=== PATIENT | male | born 1950 | race African-American/Black ===

== ENCOUNTER 2022-05-04 12:01 | Inpatient (IN) ==
[2022-05-04] MEDS ORDERED: SODIUM CHLORIDE 0.9% 1,000 ML IV STA (12:51)
[2022-05-04] MEDS ORDERED: ASPIRIN 325 MG TABLET PO STA (12:51)
[2022-05-04 13:07] LABS: Mucus,Urine Occasional /LPF (Occasional); RBC,Urine 15-20 /HPF (0-4); Squamous Epithelial Cell,Urine Occasional /HPF (0-10)
[2022-05-04 13:10] LABS: Bilirubin,Urine Negative (Negative); Blood, Urine Moderate mg/dL (Negative); Glucose,Urine (UA) Negative (Negative); Ketones,Urine Negative (Negative); Nitrite,Urine Negative (Negative); Protein,Urine Trace mg/dL (Negative); Urine Appearance Clear (Clear); Urine Color Yellow (Yellow)
[2022-05-04 13:14] LABS: Basophils % 0.3 % (0.0-0.8); Immature Granulocytes % 0.3 %; Immature Granulocytes Absolute 0.02 #; Lymphocytes # 0.9 10*3/uL (1.4-4.0); Lymphocytes % 12.4 % (21.2-54.2); Mean Corpuscular HGB Conc 33.3 GM/DL (32-36); Mean Corpuscular Volume 88.4 FL (87-102); Mean Platelet Volume 10.8 FL (9.6-12.0); Monocytes # 0.4 10*3/uL (0.11-0.8); Monocytes % 5.5 % (1.7-12.7); Neutrophils % 81.5 % (38.7-73.9); Platelet Count 258 T/CUMM (130-400); Red Blood Count 5.09 MC/CUMM (3.8-5.5); Red Cell Distribution Width 14.5 % (9.3-17.3); White Blood Count 7.3 T/CUMM (4-12)
[2022-05-04 13:25] LABS: PT Patient Result 11.1 SECS (10.1-12.1)
[2022-05-04 13:29] LABS: Barbiturates Screen,Urine Negative (Negative); Benzodiazepines Screen,Urine Negative (Negative); Cannabinoid Screen,Urine Positive (Negative); Opiate Screen,Urine Negative (Negative); Phencyclidine Screen,Urine Negative (Negative)
[2022-05-04 14:02] LABS: Alanine Aminotransferase 20 U/L (16-61); Albumin 3.4 G/DL (3.4-5.0); Alkaline Phosphatase 97 U/L (45-117); Aspartate Amino Transferase 14 U/L (0-37); Blood Urea Nitrogen 8 MG/DL (7-18); Carbon Dioxide 24 MMOL/L (21-32); Chloride 105 MMOL/L (98-107); Glucose 95 MG/DL (74-106); Osmolality,Calculated 270.8 MOS/KG (273-304); Potassium 4.4 MMOL/L (3.5-5.1); Sodium 137 MMOL/L (136-145)
[2022-05-04] MEDS ORDERED: ONDANSETRON 4 MG/2 ML VIAL IV PRN (15:06)
[2022-05-04] MEDS ORDERED: ALBUTEROL/IPRATROPIUM 3 ML NEB RESP TX PRN (15:06)
[2022-05-04] MEDS ORDERED: hydrALAZINE 20 MG/1 ML VIAL IV PRN (15:06)
[2022-05-04] MEDS ORDERED: GLUCAGON 1 MG VIAL IM PRN (15:06)
[2022-05-04] MEDS ORDERED: LORazepam 2 MG/1 ML VIAL IV PRN (15:16)
[2022-05-04] MEDS ORDERED: DEXTROSE 10% 250 ML BAG IV PRN (15:33)
[2022-05-04] MEDS: PANTOPRAZOLE 40 MG TABLET PO SCH (17:44)
[2022-05-04] MEDS ORDERED: ENOXAPARIN 40 MG/0.4 ML SYRINGE SUBCUT SCH (21:00)
[2022-05-05 05:03] LABS: Basophils % 0.3 % (0.0-0.8); Eosinophils # 0.2 10*3/uL (0.0-0.87); Eosinophils % 2.5 % (0.00-10.9); Hematocrit 43.8 VOL% (42.0-52.0); Hemoglobin 14.6 GM/DL (14.0-18.0); Immature Granulocytes % 0.3 %; Immature Granulocytes Absolute 0.02 #; Lymphocytes # 1.4 10*3/uL (1.4-4.0); Lymphocytes % 20.4 % (21.2-54.2); Mean Corpuscular HGB Conc 33.3 GM/DL (32-36); Mean Corpuscular Volume 87.3 FL (87-102); Mean Platelet Volume 10.9 FL (9.6-12.0); Monocytes # 0.5 10*3/uL (0.11-0.8); Monocytes % 7.7 % (1.7-12.7); Neutrophils % 68.8 % (38.7-73.9); Platelet Count 259 T/CUMM (130-400); Red Blood Count 5.02 MC/CUMM (3.8-5.5); Red Cell Distribution Width 14.3 % (9.3-17.3); White Blood Count 6.8 T/CUMM (4-12)
[2022-05-05 05:30] LABS: Albumin 3.2 G/DL (3.4-5.0); Bilirubin,Total 0.7 MG/DL (0.20-1.00); Calcium 9.4 MG/DL (8.5-10.1); Osmolality,Calculated 272.7 MOS/KG (273-304); Risk Ratio 2.47; Thyroid Stimulating Hormone 1.63 uIU/ml (0.358-3.74); Total Protein 7.6 G/DL (6.4-8.2)
[2022-05-05] MEDS ORDERED: FOLIC ACID INJ 1 MG in SYRINGE 1 EACH IV SCH (09:00)
[2022-05-05] MEDS ORDERED: THIAMINE 200 MG/2 ML VIAL IV SCH (09:00)
[2022-05-05] MEDS ORDERED: ASPIRIN 325 MG TABLET PO SCH (09:00)
[2022-05-05] MEDS ORDERED: MULTIVITAMIN (INTRINSIC) CAPSULE PO SCH (09:00)
[2022-05-05] MEDS: PANTOPRAZOLE 40 MG TABLET PO SCH (09:10)
[2022-05-05 12:43] VITALS: BP 175/98
[2022-05-05] MEDS ORDERED: cefTRIAXone 1,000 MG in SODIUM CHLORIDE 0.9% 100 ML IV SCH (15:00)
[2022-05-05] MEDS ORDERED: ROSUVASTATIN 10 MG TABLET PO SCH (21:00)
[2022-05-06] MEDS ORDERED: FOLIC ACID 1 MG TABLET PO SCH (09:00)
[2022-05-06] MEDS ORDERED: THIAMINE 100 MG TABLET PO SCH (09:00)
[2022-05-06] MEDS ORDERED: LOSARTAN/HCTZ 50-12.5 MG TABLET PO SCH (15:00)
== END 2022-05-05 21:00 | disposition left against medical advice (07) | DRG 948 ==
LOC: N.ED 12:01 → N.EDINP 15:06 → N.5E 16:58 → UNDODISIN 05-05 17:37
PROVIDERS: ADMIT Internal Medicine; ATTEND Internal Medicine